=== PATIENT | female | born 1995 | race African-American/Black ===

== ENCOUNTER 2022-09-23 17:47 | Emergency (ER) | payer OTHER ==
[2022-09-23 17:53] VITALS: BP 115/76; PULSE 58; RESP 18; TEMP 98; BMI 28.3
== END 2022-09-23 20:06 | disposition home or self-care (01) ==
LOC: JERFT 17:47
PROC: 0HQ0XZZ Repair Scalp Skin, External Approach (ICD-10-PCS; principal; 2022-09-23)
DX: S01.01XA Laceration without foreign body of scalp, initial encounter (principal); W22.8XXA Striking against or struck by other objects, initial encounter
CPT/HCPCS: 99283-25

== ENCOUNTER 2022-09-28 22:34 | Emergency (ER) | payer OTHER ==
[2022-09-28 22:39] VITALS: BP 101/64; PULSE 92; RESP 18; TEMP 97.8; BMI 28.3
== END 2022-09-28 23:18 | disposition home or self-care (01) ==
LOC: JERFT 22:34
DX: Z48.02 Encounter for removal of sutures (principal)
CPT/HCPCS: 99281-25